=== PATIENT | male | born 1995 | race Caucasian/White ===

== ENCOUNTER 2022-08-23 16:37 | Emergency (ER) | payer OTHER ==
[2022-08-23 16:59] VITALS: BP 127/81; PULSE 73; RESP 18; TEMP 98.3; BMI 26.4
[2022-08-23] MEDS ORDERED: SODIUM CHLORIDE 1,000 ML IV STA (17:58)
[2022-08-23] MEDS ORDERED: KETOROLAC TROMETHAMINE 30 MG/1 ML VIAL IVPUSH ONE (17:58)
[2022-08-23] MEDS ORDERED: METOCLOPRAMIDE HCL INJECTION 10 MG/2 ML VIAL IVPUSH ONE (17:59)
[2022-08-23] MEDS ORDERED: METOCLOPRAMIDE HCL INJECTION 10 MG/2 ML VIAL ONE (18:08)
[2022-08-23] MEDS ORDERED: KETOROLAC TROMETHAMINE 30 MG/1 ML VIAL ONE (18:08)
== END 2022-08-23 19:04 | disposition home or self-care (01) ==
LOC: JERFT 16:37 → JER 16:37 → JERFT 19:04
PROC: 3E0333Z Introduction of Anti-inflammatory into Peripheral Vein, Percutaneous Approach (ICD-10-PCS; principal; 2022-08-23)
PROC: 3E033GC Introduction of Other Therapeutic Substance into Peripheral Vein, Percutaneous Approach (ICD-10-PCS; 2022-08-23)
PROC: 3E0337Z Introduction of Electrolytic and Water Balance Substance into Peripheral Vein, Percutaneous Approach (ICD-10-PCS; 2022-08-23)
DX: G44.89 Other headache syndrome (principal)
CPT/HCPCS: 99284-25

== ENCOUNTER 2022-09-05 22:14 | Emergency (ER) | payer OTHER ==
[2022-09-05 22:19] VITALS: BMI 26.4
[2022-09-05] MEDS ORDERED: IBUPROFEN 400 MG TABLET (FP) PO ONE ×2 (23:54→23:59)
[2022-09-05] MEDS ORDERED: METOCLOPRAMIDE HCL INJECTION 10 MG/2 ML VIAL IVPB ONE (23:54)
[2022-09-05] MEDS ORDERED: ACETAMINOPHEN 500 MG TABLET (FP) PO ONE (23:54)
[2022-09-05] MEDS ORDERED: SODIUM CHLORIDE 0.9% 500 ML INFUS.BAG IV ONE (23:55)
[2022-09-05] MEDS ORDERED: ACETAMINOPHEN 325 MG TABLET (FP) ONE (23:59)
[2022-09-06] MEDS ORDERED: METOCLOPRAMIDE HCL INJECTION 10 MG/2 ML VIAL ONE
[2022-09-06 01:34] VITALS: BP 111/63; PULSE 82; RESP 19; TEMP 98.3
== END 2022-09-06 01:46 | disposition home or self-care (01) ==
LOC: JER 22:14
PROC: 3E033GC Introduction of Other Therapeutic Substance into Peripheral Vein, Percutaneous Approach (ICD-10-PCS; principal; 2022-09-05)
DX: R51.9 Headache, unspecified (principal); F43.0 Acute stress reaction
CPT/HCPCS: 70450-TC; 99285-25